=== PATIENT | female | born 2000 | race Caucasian/White ===

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

== ENCOUNTER 2019-06-13 23:55 | Emergency (ER) | payer SELFPAY ==
[2019-06-14] MEDS ORDERED: DEXAMETHASONE SOD PHOS INJ 10 MG/1 ML VIAL IM ONE (02:10)
--- NOTE | 2019-06-14 02:13 | ER Document Report ---
HPI - HPI Time Seen by Provider: 06/14/19 01:59 Pain Level: 2 Context: Patient is a 18-year-old female that comes to the emergency department for chief complaint of a swollen tender area just in front of the right ear that has been there for the past week or so. She states that she does not have any tooth pain, dental fractures, sore throat, ear pain, fever, nausea vomiting, cough, congestion. She does state that she was congested and she did have a lot of ear pain and pressure recently but this resolved. Afterwards the lump started forming and becoming more tender. She is on iron for anemia, LMP within the past month, she denies any other complaints or medical history. - CONSTITUTIONAL Constitutional: DENIES: Fever, Chills - EENT EENT: DENIES: Sore Throat, Ear Pain, Eye problems - NEURO Neurology: REPORTS: Headache - CARDIOVASCULAR Cardiovascular: DENIES: Chest pain - RESPIRATORY Respiratory: DENIES: Trouble Breathing, Coughing - GASTROINTESTINAL Gastrointestinal: DENIES: Abdominal Pain, Black / Bloody Stools - REPRODUCTIVE Reproductive: DENIES: : Past Medical History - General Information source: Patient, Parent - Social History Smoking Status: Never Smoker Chew tobacco use (# tins/day): No Frequency of alcohol use: None Drug Abuse: None Lives with: Family Family History: Reviewed & Not Pertinent Patient has suicidal ideation: No Patient has homicidal ideation: No Renal/ Medical History: Denies: Hx Peritoneal Dialysis - Immunizations Immunizations up to date: Yes Hx Diphtheria, Pertussis, Tetanus Vaccination: Yes Vertical Provider Document - CONSTITUTIONAL General Appearance: WD/WN, No Apparent Distress - INFECTION CONTROL TRAVEL OUTSIDE OF THE [place] IN LAST 30 DAYS: No - HEENT HEENT: Atraumatic, Normocephalic, PERRLA. negative: Conjuctival Injection, Normal ENT Exam - Right ear with questionable mild resolving effusion but no bulging, erythema, or loss of landmarks. There is an anterior auricular lymph node next to this which is tender, moderately swollen, there is no induration or fluctuance, there is no erythema to the area, tragus is nontender, there is no swelling of the ear, the mandible and jaw are unremarkable. Oral pharyngeal exam unremarkable with normal dentition, normal gums, no signs of infection. - NECK Neck: Normal Inspection. negative: Lymphadenopathy-Left, Lymphadenopathy-Right - RESPIRATORY Respiratory: Breath Sounds Normal, No Respiratory Distress - CARDIOVASCULAR Cardiovascular: Regular Rate, Regular Rhythm - GI/ABDOMEN Gastrointestinal: Abdomen Soft, Abdomen Non-Tender - BACK Back: Normal Inspection - MUSCULOSKELETAL/EXTREMETIES Musculoskeletal/Extremeties: MAEW, FROM, Non-Tender - NEURO Level of Consciousness: Awake, Alert, Appropriate Motor/Sensory: No Motor Deficit, No Sensory Deficit - DERM Integumentary: Warm, Dry, No Rash Course - Re-evaluation Re-evalutation: Exam is most consistent with lymphadenopathy, most likely from recent ear infection which has resolved without antibiotics. No evidence of oral abnormality or dental infection, no abscess is noted, no other concerning fin dings. Treated with Decadron, discussed details, expectations, follow-up, return precautions. Patient states appreciation and agreement. - Vital Signs Vital signs: Temp Pulse Resp BP Pulse Ox 97.6 F 71 16 135/78 H 98 06/13/19 23:59 06/13/19 23:59 06/13/19 23:59 06/13/19 23:59 06/13/19 23:59 Discharge - Discharge Clinical Impression: Lymphadenopathy Condition: Stable Disposition: HOME, SELF-CARE Additional Instructions: Your areas consistent with a tender inflamed lymph node, most likely reactive from your recent ear infection. You have been treated for this, you can also take [id number] anti- inflammatories such as ibuprofen, naproxen, along with Tylenol for pain. Symptoms should simply resolve with time. Follow-up with primary care. Return if you worsen including developing redness, fever, swelling of the ear, or any other concerning or worsening symptoms. Forms: Return to Work
[2019-06-14 02:25] VITALS: BP 130/79
== END 2019-06-14 02:23 | disposition home or self-care (01) ==
LOC: ER 23:55
DX: R59.0 Localized enlarged lymph nodes (principal); R51 Headache; D64.9 Anemia, unspecified
CPT/HCPCS: 99283; 96372; J1100

== ENCOUNTER 2020-02-23 06:41 | Emergency (ER) | payer SELFPAY ==
[2020-02-23 06:53] VITALS: BP 131/80
[2020-02-23] MEDS ORDERED: MECLIZINE HCL 25 MG TABLET PO ONE (07:22)
--- NOTE | 2020-02-23 08:18 | RADIOLOGY REPORT (SQ) ---
EXAM DESCRIPTION: CT HEAD WITHOUT IMAGES COMPLETED DATE/TIME: 02/23/2020 8:08 am REASON FOR STUDY: dizzy/vomit COMPARISON: None. TECHNIQUE: Axial images acquired through the brain without intravenous contrast. Images reviewed wi th bone, brain and subdural windows. Additional sagittal and coronal reconstructions were generated. Images stored on PACS. All CT scanners at this facility use dose modulation, iterative reconstruction, and/or weight based d osing when appropriate to reduce radiation dose to as low as reasonably achievable (ALARA). [facility]: Dose Right [facility]: CareDose [facility]: Dose Right [facility]: Teradose 4D [facility]: [employer] RADIATION DOSE: CT Rad equipment meets quality standard of care and radiation dose reduction techniq ues were employed. CTDIvol: 53.2 mGy. DLP: 1017 mGy-cm. mGy. LIMITATIONS: None. FINDINGS: VENTRICLES: Normal size and contour. CEREBRUM: No masses. No hemorrhage. No midline shift. No evidence for acute infarction. Normal gra y/white matter differentiation. No areas of low density in the white matter. CEREBELLUM: No masses. No hemorrhage. No alteration of density. No evidence for acute infarction. EXTRAAXIAL SPACES: No fluid collections. No masses. ORBITS AND GLOBE: No intra- or extraconal masses. Normal contour of globe without masses. CALVARIUM: No fracture. PARANASAL SINUSES: No fluid or mucosal thickening. SOFT TISSUES: No mass or hematoma. OTHER: No other significant finding. IMPRESSION: NORMAL BRAIN CT WITHOUT CONTRAST. EVIDENCE OF ACUTE STROKE: NO. COMMENT: Quality ID # [id number]: Final reports with documentation of one or more dose reduction techniques (e.g., Automated exposure control, adjustment of the mA and/or kV according to patient size, use of iterative reconstruction technique) TECHNICAL DOCUMENTATION: JOB ID: [id number] [employer]- All Rights Reserved Reading location - IP/workstation name: [email or web address]
--- NOTE | 2020-02-23 08:27 | ER Document Report ---
ED Dizziness/Weakness - General Chief Complaint: Dizziness Stated Complaint: DIZZINESS,VOMITING Time Seen by Provider: 02/23/20 06:58 Mode of Arrival: Ambulatory Information source: Patient TRAVEL OUTSIDE OF THE [place] IN LAST 30 DAYS: No - HPI Notes: Patient presents with vertigo and dizziness that started this morning. She states that when she woke up this morning she had the sensation that the room was moving up and down but not really rotating. She states she had her mom drive her here and on the way she did get a headache but she feels this may be from the essential oil that her mom was using in the car. The dizziness was constant this morning. It appeared to be moderate. Appear to be worse when she stood up and better when she sat down. There is obviously no radiation of the symptom. No recent cough cold or congestion. - Related Data Allergies/Adverse Reactions: No Known Allergies Allergy (Verified 09/19/18 15:16) Home Medications: iron Past Medical History - General Information source: Patient - Social History Smoking Status: Never Smoker Frequency of alcohol use: None Drug Abuse: None Family History: Reviewed & Not Pertinent Renal/ Medical History: Denies: Hx Peritoneal Dialysis - Immunizations Immunizations up to date: Yes Hx Diphtheria, Pertussis, Tetanus Vaccination: Yes Review of Systems - Review of Systems Constitutional: denies: Chills, Fever Cardiovascular: denies: Chest pain, Palpitations Respiratory: denies: Cough, Short of breath -: Yes All other systems reviewed and negative Physical Exam - Vital signs Vitals: Temp Pulse Resp BP Pulse Ox 98 F 72 16 131/80 H 100 02/23/20 06:52 02/23/20 06:52 02/23/20 06:52 02/23/20 06:52 02/23/20 06:52 Interpretation: Normal - General General appearance: Appears well, Alert - HEENT Head: Normocephalic, Atraumatic Eyes: Normal Pupils: PERRL - Respiratory Respiratory status: No respiratory distress Chest status: Nontender Breath sounds: Normal Chest palpation: Normal - Cardiovascular Rhythm: Regular Heart sounds: Normal auscultation Murmur: No - Abdominal Inspection: Normal Distension: No distension Bowel sounds: Normal Tenderness: Nontender Organomegaly: No organomegaly - Back Back: Normal, Nontender - Extremities General upper extremity: Normal inspection, Nontender, Normal color, Normal ROM, Normal temperature General lower extremity: Normal inspection, Nontender, Normal color, Normal ROM, Normal temperature, Normal weight bearing. No: Jazlyn's sign - Neurological Neuro grossly intact: Yes Cognition: Normal Orientation: AAOx4 [place] Coma Scale Eye Opening: Spontaneous [place] Coma Scale Verbal: Oriented [place] Coma Scale Motor: Obeys Commands Umer Coma Scale Total: 15 Speech: Normal Cranial nerves: Normal Cerebellar coordination: Normal Motor strength normal: LUE, RUE, LLE, RLE Additional motor exam normals: Equal filling hauler. No: Pronator drift Sensory: Normal - Psychological Associated symptoms: Normal affect, Normal mood - Skin Skin Temperature: Warm Skin Moisture: Dry Skin Color: Normal Course - Re-evaluation Re-evalutation: 02/23/20 08:24 Patient presents with some dizziness. There is no vertigo. The head CT is unremarkable exam is also unremarkable. Vital signs are stable. No obvious cause can be seen for the dizziness. However patient appears stable for discharge. I will discharge the patient with meclizine and have her follow-up with her primary care physician. - Vital Signs Vital signs: Temp Pulse Resp BP Pulse Ox 98 F 72 16 131/80 H 100 02/23/20 06:52 02/23/20 06:52 02/23/20 06:52 02/23/20 06:52 02/23/20 06:52 - Diagnostic Test Radiology reviewed: Image reviewed, Reports reviewed Discharge - Discharge Clinical Impression: Dizziness Condition: Stable Disposition: HOME, SELF-CARE Instructions: Dizziness ([facility]), Meclizine ([facility]) Prescriptions: Meclizine HCl 25 mg PO Q6 PRN 3 Days #12 tablet PRN Reason: Dizziness Forms: Return to Work Referrals: [facility] [Provider Group] - Follow up in 3-5 days
== END 2020-02-23 08:33 | disposition home or self-care (01) ==
LOC: ER 06:41
DX: R42 Dizziness and giddiness (principal); R51 Headache; Z79.899 Other long term (current) drug therapy
CPT/HCPCS: 70450; 99284